=== PATIENT | female | born 1940 | race Caucasian/White ===

== ENCOUNTER 2017-01-21 12:39 | Outpatient (CLI) | payer MEDICARE, OTHER ==
--- NOTE | 2017-01-21 18:27 | XRAY Report ---
FOUR-VIEW BILATERAL KNEES: 01/21/2017 CLINICAL INDICATION: Worsening pain. FINDINGS: AP, lateral, bilateral oblique views of the bilateral knees demonstrate moderate bilateral osteoarthritis, with chondrocalcinosis. There is no evidence of acute fracture or dislocation. No effusion is present. IMPRESSION: MODERATE BILATERAL OSTARTHRITIS. JOB #: [id number] EXT JOB #:[id number]
--- NOTE | 2017-01-22 15:54 | DEXA Report ---
DEXA SCAN: 01/21/2017 CLINICAL INDICATION: Osteopenia. TECHNIQUE: Dual energy x-ray absorptiometry (DXA) was performed on a [employer] system. Regions measured are the AP spine, femoral neck, and, if needed, forearm. COMPARISON: None. In accordance with the International Society for Clinical Densitometry (ISCD) guidelines, data from previous exams may be reanalyzed using current recommendations and techniques. This is done to allow a more accurate basis for comparison with the current study. FINDINGS Data for the lumbar spine is as follows: REGION BMD (g/cm/cm) T-SCORE Z-SCORE L1 0.796 -2.8 -1.5 L2 0.930 -2.2 -1.0 L3 0.817 -3.2 -1.9 L4 0.877 -2.7 -1.4 TOTAL 0.857 -2.7 -1.4 NOTE: All evaluable vertebrae are used for classification. Data for the hip is as follows: REGION BMD (g/cm/cm) T-SCORE Z-SCORE Neck 0.689 -2.5 -0.9 TOTAL 0.783 -1.8 -0.4 NOTE: The femoral neck or total proximal femur, whichever is lowest, is used for classification. Data for the forearm is as follows: REGION BMD (g/cm/cm) T-SCORE Z-SCORE 1/3 0.691 -2.1 0.3 NOTE: The 33% radius of the nondominant forearm is used for classification. IMPRESSION 1. THE WHO CLASSIFICATION BASED ON THE INTERNATIONAL REFERENCE STANDARD IS OSTEOPOROSIS. THE FRACTURE RISK IS HIGH. 2. LEFT FOREARM EVALUATION PERFORMED DUE TO HISTORY OF HYPERPARATHYROIDISM. RECOMMENDATION: Patients with diagnosis of osteoporosis or osteopenia should have regular bone mineral density assessment. For those eligible for Medicare, routine testing is allowed once every 2 years. Testing frequency can be increased for patients who have rapidly progressing disease or for those who are receiving medical therapy to restore bone mass. COMMENT: World Health Organization (WHO) definitions for osteoporosis and osteopenia: NORMAL BMD: T-score at -1.0 or higher, fracture risk is low. OSTEOPENIA BMD: T-score between -1.0 and -2.5, fracture risk is increased. OSTEOPOROSIS BMD: T-score at -2.5 or lower, fracture risk high. National Osteoporosis Foundation recommends: 1. Obtain adequate dietary calcium (at least 1200 mg per day) and vitamin D (400 -800 international units per day). 2. Participate, as appropriate, in regular weightbearing and muscle- strengthening exercise. 3. Avoid tobacco use and reduce alcohol and caffeine intake. 4. For more detailed information see the website at www.NOF.org. MTDD
== END 2017-01-21 12:40 | disposition home or self-care (01) ==
LOC: DI 12:39
PROVIDERS: ATTEND Registered Nurse
DX: M81.0 Age-related osteoporosis without current pathological fracture (principal); M17.0 Bilateral primary osteoarthritis of knee; E21.3 Hyperparathyroidism, unspecified
CPT/HCPCS: 77080; 77081

== ENCOUNTER 2017-01-21 12:41 | Outpatient (CLI) | payer MEDICARE, OTHER ==
--- NOTE | 2017-01-22 13:11 | Mammography Report ---
DIGITAL SCREENING MAMMOGRAM: 01/21/2017 CLINICAL INDICATION: A 76-year-old with history of late childbearing, history of benign left breast biopsy for screening. COMPARISON: 02/2015, 02/2014, 01/2013. TECHNIQUE: Routine CC and MLO projections were obtained of the breasts. FINDINGS: The breasts demonstrate scattered fibroglandular densities bilaterally. Coarse, typically benign calcifications are present. Postbiopsy changes in the left breast are stable. No suspicious masses, clustered microcalcifications, or regions of architectural distortion are identified. IMPRESSION: BENIGN FINDINGS. RECOMMENDATION: Routine annual screening unless otherwise clinically indicated. BI-RADS category 2, benign findings. STANDARD QUALIFYING STATEMENTS 1. This examination was reviewed with the aid of Computer-Aided Detection (CAD). 2. A negative or benign imaging report should not delay biopsy if clinically suspicious findings are present. Consider surgical consultation if warranted. More than 5% of cancers are not identified by i maging. 3. Dense breasts may obscure an underlying neoplasm. JOB #: [id number] EXT JOB #:[id number]
== END 2017-01-21 12:42 | disposition home or self-care (01) ==
LOC: DI 12:41
PROVIDERS: ATTEND Registered Nurse
DX: Z12.31 Encounter for screening mammogram for malignant neoplasm of breast (principal)
CPT/HCPCS: 77067

== ENCOUNTER 2019-03-10 15:17 | Outpatient (CLI) | payer MEDICARE, OTHER ==
--- NOTE | 2019-03-17 11:42 | Mammography Report ---
Reason: OSTEOPOROSIS Procedure Date: 03/10/2019 Accession Number: [id number] / [id number] Procedure: [facility] - Screening Mammo w/[facility] CPT Code: Final Report FULL RESULT: EXAM: Screening Mammo w/[facility] DATE: 03/10/2019 4:05 PM CLINICAL HISTORY: Screening encounter. History of late childbearing. History of left breast biopsy, excisional type with benign pathology. TECHNIQUE: (B) - Bilateral CC and MLO views were obtained. COMPARISON: 01/21/2017 through 04/21/2007. PARENCHYMAL PATTERN: (A) - The breast(s) demonstrate(s) scattered fibroglandular densities. FINDINGS: There are typically benign large rodlike calcifications and typically benign coarse calcifications. There are no suspicious masses, calcifications, or areas of distortion. IMPRESSION: Benign findings. BI-RADS category 2. RECOMMENDATION: (ANNUAL) - Recommend routine annual screening mammography. BI-RADS CATEGORY: (2) - Benign Findings. STANDARD QUALIFYING STATEMENTS: 1. This examination was not reviewed with the aid of Computer-Aided Detection (CAD). 2. A negative or benign imaging report should not preclude biopsy if clinically suspicious findings are present. 3. Dense breasts may obscure an underlying neoplasm. 4. This examination was reviewed with the aid of 3D breast imaging (tomosynthesis).
== END 2019-03-10 15:18 | disposition home or self-care (01) ==
LOC: DI 15:17
PROVIDERS: ATTEND Registered Nurse
DX: Z12.31 Encounter for screening mammogram for malignant neoplasm of breast (principal)
CPT/HCPCS: 77063; 77067

== ENCOUNTER 2019-03-10 15:17 | Outpatient (CLI) | payer MEDICARE, OTHER ==
--- NOTE | 2019-03-15 08:55 | DEXA Report ---
Reason: OSTEOPOROSIS Procedure Date: 03/10/2019 Accession Number: [id number] / [id number] Procedure: DEX - Dexa Spine and/or Hip CPT Code: Final Report FULL RESULT: EXAM: Dexa Spine and/or Hip DATE: 03/10/2019 3:45 PM CLINICAL HISTORY: OSTEOPOROSIS TECHNIQUE: Dual energy x-ray absorptiometry (DXA) was performed on a [employer] System. Regions measured are the AP Spine, femoral neck, and if needed forearm. COMPARISON: 01/21/2017. In accordance with the International Society for Clinical Densitometry (ISCD) guidelines, data from previous exams may be reanalyzed using current recommendations and techniques. This is done to allow a more accurate basis for comparison with the current study. FINDINGS: The data for the lumbar spine is as follows: BMD (g/cm/cm) T-SCORE Z-SCORE REGION L1 0.934 -1.6 -0.3 L2 1.016 -1.5 -0.2 L3 1.005 -1.6 -0.3 L4 1.033 -1.4 -0.1 TOTAL 0.999 -1.5 -0.2 NOTE: All evaluable vertebrae are used for classification The data for the hip is as follows: BMD (g/cm/cm) T-SCORE Z-SCORE REGION Neck 0.650 -2.8 -1.1 TOTAL 0.813 -1.5 0.0 NOTE: The femoral neck or total proximal femur, whichever is lowest, is used for classification. DXA RESULTS SUMMARY: Spine SCAN DATE [age] BMD CHANGE VS CHANGE VS PREVIOUS PREVIOUS % 3/10[birth year]2019 [age] 0[age]999 0.142* 16.6* 01/21/2017 [age] 0[age]857 * Denotes significant change at the 95% confidence level. Denotes dissimilar scan types or analysis methods. DXA RESULTS SUMMARY: Hip SCAN DATE [age]GE BMD CHANGE VS CHANGE VS PREVIOUS PREVIOUS % 3/[birth year]2019 [age] 0.813 0.030 3.8 01[age][birth year]2017 [age] 0.783 * Denotes significant change at the 95% confidence level. Denotes dissimilar scan types or analysis methods. IMPRESSION: THE WHO CLASSIFICATION BASED ON THE INTERNATIONAL REFERENCE STANDARD IS OSTEOPENIA. THE FRACTURE RISK IS INCREASED. Statistically significant interval decrease in bone density. RECOMMENDATION: Patients with diagnosis of osteoporosis or osteopenia should have regular bone mineral density assessment. For those eligible for Medicare, routine testing is allowed once every 2 years. Testing frequency can be increased for patients who have rapidly progressing disease or for those who are receiving medical therapy to restore bone mass. COMMENT: World Health Organization (WHO) definitions for osteoporosis and osteopenia: NORMAL BMD: T-score at -1.0 or higher, fracture risk is low OSTEOPENIA BMD: T-score between -1.0 and -2.5, fracture risk is increased. OSTEOPOROSIS BMD: T-score at -2.5 or lower, fracture risk is high. National Osteoporosis Foundation recommends: 1. Obtain adequate dietary calcium (at least 1200 mg per day) and vitamin D (400-800 international units per day). 2. Participate, as appropriate, in regular weightbearing and muscle-strengthening exercise. 3. Avoid tobacco use and reduce alcohol and caffeine intake. 4. For more detailed information see the website at www.NOF.org.
== END 2019-03-10 15:18 | disposition home or self-care (01) ==
LOC: DI 15:17
PROVIDERS: ATTEND Registered Nurse
DX: M81.0 Age-related osteoporosis without current pathological fracture (principal); Z79.83 Long term (current) use of bisphosphonates
CPT/HCPCS: 77080

== ENCOUNTER 2019-08-15 13:41 | Emergency (ER) | payer MEDICARE, OTHER ==
[2019-08-15 13:49] VITALS: BP 153/88
[2019-08-15] MEDS ORDERED: DEXAMETHASONE 10 MG/ML VIAL IM STA (14:12)
[2019-08-15] MEDS ORDERED: HYDROcod/ACETAM 5/325 MG TABLET PO STA (14:12)
--- NOTE | 2019-08-15 14:14 | ED Physician Documentation ---
PD HPI BACK PAIN - Stated complaint Stated Complaint: LOWER BACK PX - Chief complaint Chief Complaint: Back Pain - History obtained from History obtained from: Patient - History of Present Illness Timing - onset: Other (This is a 78-year-old woman who is generally pretty healthy, she has some osteoporosis and osteoarthritis. She has a history of sciatica but not in a long time. 2 days ago she bent over and her back was started aching, ever since then it is gotten worse and today she is lost function because of it because the pain is severe. It is sharp pain in the lumbar spine radiating into the buttock and down into the right leg not past the knee. She denies weakness, numbness, tingling, saddle anesthesia, fevers, incontinence.) Review of Systems Constitutional: reports: Reviewed and negative Throat: reports: Reviewed and negative Cardiac: reports: Reviewed and negative Respiratory: reports: Reviewed and negative PD PAST MEDICAL HISTORY - Past Medical History Cardiovascular: Hypertension, High cholesterol Respiratory: None Endocrine/Autoimmune: HyPOthyroidism GI: None : None Psych: Depression, Claustrophobia Musculoskeletal: Osteoarthritis, Osteopenia - Past Surgical History General: Colonoscopy, Other (S/P left inguinal hernia repair) /CASE BRIEFER: section, Hysterectomy, Oophrectomy HEENT: Tonsil/Adenoidectomy - Present Medications Home Medications: Ambulatory Orders Medication Instructions Recorded Confirmed Atorvastatin Calcium [Lipitor] 20 mg PO DAILY 04/20/13 04/20/13 Thyroid,Pork [Thyroid] 111 gm MC 04/20/13 04/20/13 hydroCHLOROthiazide 12.5 mg PO DAILY 04/20/13 04/20/13 [Hydrochlorothiazide] Omeprazole 20 mg PO DAILY #20 capsule. 06/23/15 Hydrocodone/Acetaminophen 1 - 2 each PO Q6H PRN #20 tablet 08/15/19 [Hydrocodon-Acetaminophen 5-325] - Allergies Allergies/Adverse Reactions: Allergies Allergy/AdvReac Type Severity Reaction Status Date / Time No Known Drug Allergies Allergy Verified 08/15/19 13:45 - Social History Does the pt smoke?: No Smoking Status: Never smoker PD ED PE NORMAL - Vitals Vital signs reviewed: Yes - General General: Alert and oriented X 3, No acute distress - Abdomen Abdomen: Soft, Non tender - Back Back: No spinal TTP - Extremities Extremities: Other (The patient has equal and normal Achilles and patellar reflexes bilaterally. Normal sensation in all areas of the legs. Patient denies saddle anesthesia. Normal strength in flexion-extension at the ankles, knees, and flexion of the hips.) - Neuro Neuro: Alert and oriented X 3, Normal speech Results - Vitals Vitals: Vital Signs - 24 hr 08/15/19 13:45 Temperature 36.5 C Heart Rate 76 Respiratory 14 Rate Blood Pressure 153/88 H O2 Saturation 95 Oxygen O2 Source Room air - Rads (name of study) CT L spine Radiology: EMP read contemporaneously (No acute abnormalities, grade 1-2 anterolisthesis of L4-L5 causing severe central canal narrowing. Mild to moder ate bilateral neural foraminal narrowing at L4-L5. Multilevel intervertebral disc degenerative changes of the lumbar spine. Central and right paracentral disc protrusion at L5-S1 with mild central narrowing.) PD MEDICAL DECISION MAKING - ED course ED course: 78-year-old woman with severe back pain, given advanced age CT imaging was done showing above findings. Feeling much better after hydrocodone and IM dexamethasone. The patient and family were counseled as to the diagnosis and need for follow- up. I counseled the patient with regard to signs and symptoms that would necessitate an urgent reevaluation in the emergency department. They understand they are welcome to return at any time if worse or if not improving as expected. This document was made in part using voice recognition software. While efforts are made to proofread this documents, sound alike and grammatical errors may occur. Departure - Departure Disposition: 01 Home, Self Care Clinical Impression: Sciatica Qualifiers: Laterality: right Qualified Code(s): M54.31 - Sciatica, right side Condition: Good Record reviewed to determine appropriate education?: Yes Instructions: ED Sciatica Prescriptions: Hydrocodone/Acetaminophen [Hydrocodon-Acetaminophen 5-325] 1 - 2 each PO Q6H PRN #20 tablet PRN Reason: pain Comments: Talk with your doctor about physical therapy referral, potential spine surgery referral if not improving quickly. Return for new or worsening symptoms, coty cially but not limited to: Fever, numbness around your groin, incontinence of bowel or bladder, weakness on both sides, numbness on both sides. Do not drink or drive while taking narcotic pain medication. Note that many narcotic pain relievers also contain Tylenol/acetaminophen. Please ensure that your total dose of acetaminophen from all sources does not exceed 3 g (3000 mg) per day. You may get constipated while on this medication. Take a stool softener such as Colace twice a day while you are on it. Also add an [id number]-blnavsa laxative such as senna or MiraLAX on any day that you do not have a bowel movement. If you received a narcotic pain medication or sedative while in the emergency department, do not drive for the next 24 hours.
--- NOTE | 2019-08-15 15:11 | CT Report ---
Reason: back pain Procedure Date: 08/15/2019 Accession Number: [id number] / [id number] Procedure: CT - LUMBAR SPINE WO CPT Code: Final Report FULL RESULT: EXAM: CT LUMBAR SPINE WITHOUT CONTRAST EXAM DATE: 08/15/2019 02:31 PM. CLINICAL HISTORY: Back pain. Radiating to right hip and gluteal area. COMPARISONS: None. TECHNIQUE: Thin-section axial images were acquired of the lumbar spine from T12 to S1 without contrast. Post-processing: Coronal and sagittal reformats. Other: None. In accordance with CT protocol optimization, one or more of the following dose reduction techniques were utilized for this exam: automated exposure control, adjustment of mA and/or KV based on patient size, or use of iterative reconstructive technique. FINDINGS: Alignment: Grade 1/2 anterolisthesis of L4 on L5 measuring 7.5 mm. No significant scoliosis. Bones: Five [id number] lumbar vertebral bodies are present. Degenerative osteophyte formation. No acute fracture. No bony lesions. Disk Levels/Facets: T12-L1: Mild circumferential disk protrusion. Osteophyte formation. Mild disk space narrowing. Facet arthropathy. Posterior calcified disk. L1-L2: Mild circumferential disk protrusion. Facet arthropathy. Mild central canal narrowing. L2-L3: Mild circumferential disk protrusion. Facet arthropathy. L3-L4: Mild circumferential disk protrusion. Facet arthropathy. Mild bilateral neural foraminal narrowing. Mild central canal narrowing. Ligamentum flavum hypertrophy. L4-L5: Disk space narrowing. Circumferential disk protrusion with some posterior disk calcification. Severe central canal narrowing. Facet arthropathy. Mild to moderate bilateral neural foraminal narrowing. L5-S1: Circumferential disk protrusion with central and right paracentral disk present. Facet arthropathy. There is mild central canal narrowing. Mild bilateral neural foraminal narrowing. Musculature: Normal. No fatty atrophy. Other: Vascular calcifications. Otherwise retroperitoneal is unremarkable. IMPRESSION: 1. No acute lumbar spine abnormalities are identified. 2. Grade 1/2 anterolisthesis of L4 on L5 causing severe central canal narrowing. Mild to moderate bilateral neural foraminal narrowing at L4-L5. 3. Multilevel intervertebral disk degenerative changes of the lumbar spine greatest at L4-L5. 4. Central and right paracentral disk protrusion at L5-S1 with mild central canal narrowing. 5. Multilevel lumbar facet arthropathy. RADIA
== END 2019-08-15 15:46 | disposition home or self-care (01) ==
LOC: ED 13:41
DX: M54.31 Sciatica, right side (principal); M43.16 Spondylolisthesis, lumbar region; M51.36 Other intervertebral disc degeneration, lumbar region; M51.27 Other intervertebral disc displacement, lumbosacral region; M81.0 Age-related osteoporosis without current pathological fracture; M19.90 Unspecified osteoarthritis, unspecified site; I10 Essential (primary) hypertension; E78.00 Pure hypercholesterolemia, unspecified; F40.240 Claustrophobia
CPT/HCPCS: 72131; 96372; 99283; 99284; A9270